=== PATIENT | male | born 1975 | race Caucasian/White ===

== ENCOUNTER 2018-04-30 05:04 | Inpatient (IN) | payer OTHER ==
[2018-04-30] MEDS ORDERED: GABAPENTIN 300 MG CAP PO ONE (05:47)
[2018-04-30] MEDS ORDERED: ACETAMINOPHEN 500 MG TAB PO ONE (05:47)
[2018-04-30] MEDS ORDERED: ceFAZolin 2 GM/DEXTROSE 100 ML IV ONE (05:47)
[2018-04-30] MEDS ORDERED: LR 1,000 ML IV ONE (05:48)
[2018-04-30] MEDS ORDERED: BACITRACIN 50,000 UNITS/10 ML SYR IRR ONE ×3 (06:49→11:03)
[2018-04-30] MEDS ORDERED: BUPIVACAINE 0.25% 30 ML SDV ONE (06:52)
[2018-04-30] MEDS ORDERED: EPINEPHrine 1 MG/ML INJ ONE (06:52)
[2018-04-30] MEDS ORDERED: THROMBIN (BOVINE) 5,000 UNIT VIAL TP ONE (06:52)
[2018-04-30] MEDS ORDERED: MIDAZOLAM 2 MG/2 ML VIAL IVP ONE (06:55)
--- NOTE | 2018-04-30 06:55 | PDANEPAE ---
ANE History of Present Illness L5-S1 TLIF ANE Past Medical History - Cardiovascular History Hx Hypertension: Yes Hx Arrhythmias: No Hx Chest Pain: No Hx Coronary Artery / Peripheral Vascular Disease: No Hx CHF / Valvular Disease: No Hx Palpitations: No - Pulmonary History Hx COPD: No Hx Asthma/Reactive Airway Disease: No Hx Recent Upper Respiratory Infection: No Hx Oxygen in Use at Home: No Hx Sleep Apnea: No Sleep Apnea Screening Result - Last Documented: Positive - Neurologic History Hx Cerebrovascular Accident: No Hx Seizures: No Hx Dementia: No - Endocrine History Hx Diabetes: Yes Hypothyroid: No Hyperthyroid: No Obesity: yes Endocrine History Comment: 2007 HAD DIABETIC STROKE WITH RESIDUAL VISUAL DISTURBANCE. 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 RT ARM NUMBNESS - Chronic Pain History Chronic Pain: Yes (TAILBONE AND MIDDLE OF BACK,RT ARM NUMBNESS) - Surgical History Prior Surgeries: CERVICAL DISKECTOMY 2011. GASTRIC BYPASS 07/2008. LT ING HERNIA. LT KNEE SCOPE X2 ANE Review of Systems Review of systems is: negative Review of Systems: - Exercise capacity METS (RN): 4 METS ANE Patient History - Allergies Allergies/Adverse Reactions: clindamycin Allergy (Verified 04/06/18 10:56) TONGUE SWELLING - Home Medications Home medications: home medication list seen and reviewed Home Medications: Advil TID 04/06/18 [Last Taken 04/23/18] Lisinopril DAILY16 04/06/18 [Last Taken 04/30/18 03:30] - NPO status NPO Since - Liquids (Date): 04/30/18 NPO Since - Liquids (Time): 03:30 NPO Since - Solids (Date): 04/29/18 NPO Since - Solids (Time): 21:30 - Anes Hx Anes Hx: no prior problems - Smoking Hx Smoking Status: Never smoked ANE Labs/Vital Signs - Vital Signs Blood Pressure: 144/100 Heart Rate: 59 Respiratory Rate: 12 O2 Sat (%): 96 Height: 170.18 cm Weight: 111.13 kg ANE Physical Exam - Airway Neck exam: FROM Mallampati Score: Class 1 Mouth exam: normal dental/mouth exam - Pulmonary Pulmonary: no respiratory distress - Cardiovascular Cardiovascular: regular rate and rhythym - ASA Status ASA Status: II ANE Anesthesia Plan Anesthesia Plan: general endotracheal anesthesia
--- NOTE | 2018-04-30 07:00 | PDHPUP ---
History & Physical Update H&P update statement: This history and physical update is based on an assessment of the patient which was completed after admission or registration (within 24 hours), but prior to the surgery/procedure. H&P update: H&P reviewed & patient examined, no change in patient's condition since H&P completed
[2018-04-30] MEDS ORDERED: REMIFENTANIL HCL 1 MG VIAL ONE (07:04)
[2018-04-30] MEDS ORDERED: ROCURONIUM 50 MG/5 ML VIAL ONE ×2 (07:05→08:29)
[2018-04-30] MEDS ORDERED: LIDOCAINE 2% 2 ML INJ ONE ×2 (07:05)
[2018-04-30] MEDS ORDERED: ONDANSETRON 4 MG/2 ML VIAL ONE (07:05)
[2018-04-30] MEDS ORDERED: fentaNYL 100 MCG/2 ML INJ ONE ×4 (07:05→12:54)
[2018-04-30] MEDS ORDERED: PROPOFOL/EMULSION 500 MG/50 ML BOTTLE IV ONE ×3 (07:05→10:26)
[2018-04-30] MEDS ORDERED: DEXAMETHASONE 4 MG/ML VIAL ONE (07:05)
[2018-04-30] MEDS ORDERED: CHLORHEXIDINE GLUC HIBICLENS 118 ML BTL TP ONE (07:10)
[2018-04-30] MEDS ORDERED: PROPOFOL 200 MG/20 ML VIAL ONE (07:12)
[2018-04-30] MEDS ORDERED: LACTULOSE 20 GM/30 ML UDCUP PO PRN (07:52)
[2018-04-30] MEDS ORDERED: MAGNESIUM HYDROXIDE 30 ML UDCUP PO PRN (07:52)
[2018-04-30] MEDS ORDERED: ONDANSETRON DISINTEGRATING 4 MG TAB PO PRN ×2 (07:52)
[2018-04-30] MEDS ORDERED: BISACODYL 10 MG SUPP PR PRN (07:52)
[2018-04-30] MEDS ORDERED: METOCLOPRAMIDE 10 MG/2 ML VIAL IVP PRN (07:52)
[2018-04-30] MEDS ORDERED: PROMETHAZINE HCL 25 MG/ML INJ IVP PRN ×3 (07:52→11:39)
[2018-04-30] MEDS ORDERED: POLYETHYLENE GLYCOL 3350 17 GM PKT PO PRN (07:52)
[2018-04-30] MEDS ORDERED: ONDANSETRON 4 MG/2 ML VIAL IVP PRN ×3 (07:52→11:39)
[2018-04-30] MEDS ORDERED: diphenhydrAMINE 25 MG CAP PO PRN ×2 (07:52)
[2018-04-30] MEDS ORDERED: ACETAMINOPHEN 325 MG TAB PO PRN (07:52)
[2018-04-30] MEDS ORDERED: ePHEDrine SULFATE 25 MG/5 ML SYR ONE ×2 (07:56→08:29)
[2018-04-30] MEDS ORDERED: NS 1,000 ML IV SCH (08:00)
[2018-04-30] MEDS ORDERED: HYDROmorphONE/DILAUDID 2 MG/ML INJ ONE (08:03)
--- NOTE | 2018-04-30 09:08 | POSTANESTH ---
Post Anesthetic Evaluation Cardiovascular Status: Normal, Stable Respiratory Status: Normal, Stable Level of Consciousness/Mental Status: Can Participate in Eval, Mildly Sleepy, Arousable Pain Control: Adequate, Prn Tx Ordered Nausea/Vomiting Control: Adequate, Prn Tx Ordered Complications Possibly Related to Anesthesia: None Noted
--- NOTE | 2018-04-30 09:21 | PDMN ---
Medical Necessity Medical necessity: MCG: S820 lumbar fusion INPT only 3 days: OP: L5-S1 TLIF [id number] APPROVED FOR INPT SURGERY
[2018-04-30] MEDS ORDERED: ceFAZolin 1 GM VIAL ONE (10:30)
[2018-04-30] MEDS ORDERED: DIAZEPAM 5 MG/ML 1 ML SYR IVP PRN (11:39)
[2018-04-30] MEDS ORDERED: ACETAMINOPHEN 500 MG TAB PO PRN (11:39)
[2018-04-30] MEDS ORDERED: ALBUTEROL 3 ML DEYVIAL IH PRN (11:39)
[2018-04-30] MEDS ORDERED: HYDROmorphONE/DILAUDID 2 MG/ML INJ IVP PRN (11:39)
[2018-04-30] MEDS ORDERED: LABETALOL HCL 5 MG/ML 20 ML MDV IVP PRN (11:39)
[2018-04-30] MEDS ORDERED: oxyCODONE IR 5 MG TAB PO PRN (11:39)
[2018-04-30] MEDS ORDERED: LR 500 ML IV PRN (11:39)
[2018-04-30] MEDS ORDERED: HYDROCODONE/APAP 5/325 TAB PO PRN (11:39)
[2018-04-30] MEDS ORDERED: NALOXONE HCL 0.4 MG/ML INJ IVP PRN (11:39)
[2018-04-30] MEDS ORDERED: fentaNYL 100 MCG/2 ML INJ IVP PRN (11:39)
[2018-04-30] MEDS ORDERED: DIAZEPAM 5 MG/ML 1 ML SYR ONE (13:05)
--- NOTE | 2018-04-30 13:40 | GOP ---
DATE OF OPERATION: 04/30/2018 SURGEON: Casey Aguilar MD NEUROSURGEON: Casey Aguilar MD. CLOTH LAMINATING SUPERVISOR: Lisa Santiago, nurse practitioner. PREOPERATIVE DIAGNOSIS: Lumbar spondylolysis L5, lumbar spondylolisthesis L5-S1, bilateral lumbosacr al radiculopathy, bilateral hip pain, axial low back pain. POSTOPERATIVE DIAGNOSIS: Lumbar spondylolysis L5, lumbar spondylolisthesis L5-S1, bilateral lumbosac ral radiculopathy, bilateral hip pain, axial low back pain. PROCEDURE PERFORMED: Posterior lateral and intervertebral arthrodesis L5-S1 with a Fiore decompressio n bilaterally (77266), placement of biomechanical intervertebral device L5-S1 (12013), posterior nons egmental instrumentation across a single interspace L5-S1, spinal stereotaxy, microscope, same incisi on bone graft harvest. FINDINGS: Consistent with diagnosis. SPECIMENS: None. ESTIMATED BLOOD LOSS: 100 cc. INDICATIONS: The patient is a young gentleman with a long history of axial low back pain, bilateral radiating hip pain, that had become intolerable. MRI demonstrated a spondylolysis of L5 and signific ant spondylolisthesis right at the grade 1-2 junction. There was a severe foraminal stenosis of the exiting L5 nerve roots, and I suggested a bilateral decompression and fusion. The risks of adjacent segment disease, axial low back pain, continued symptoms, nerve injury, spinal fluid leak, pseudoarth rosis were discussed. He knew that in time he may need to have additional surgery. He knew that he may have significant perioperative discomfort. He understood these risks. He did want to proceed. DESCRIPTION OF PROCEDURE: Patient was taken to the operating room, placed in a supine position. Gen eral anesthesia was begun. He was flipped prone onto the Kobe table. Care was taken to pad all p oints of contact. His back was sterilely prepped and draped in the usual fashion. A localizing x-ra y was taken. We made a midline incision about 6 cm in length. The subcutaneous tissue was dissected using Bovie cautery down to the fascia, and a subperiosteal dissection was made down the inferior la jose of L4 and the lamina of L5, and the lamina of S1 was exposed. The L5 lamina was floating and hy permobile. The L4 lamina was subluxed more ventrally. We shot a localizing x-ray. We denuded the b ilateral facet joints at L5-S1 and identified the transverse process of L5 and the sacral ala. We at tached the Stealth reference frame to the L4 spinous process and removed the L5 spinous process for a utologous grafting purposes. We performed an O-arm spin and using frame still stereotactic, placed p edicle screws bilaterally at L5 and the sacrum. The sacral screws were bicortical. All the screws s timulated at acceptable levels on lateral imaging. However, after placement of the pedicle screws, t he left L5 screw appeared to violate the plane of the L4-5 disk on 3D imaging. There was no clear ev idence of disk violation as it was just lateral to the disk itself and did not violate the bony endpl ate of L5. However, given the lateral appearance on x-ray, I elected to remove that screw and replac e it under Stealth guidance. Followup imaging demonstrated a perfectly placed screw. There was exce llent bony purchase of all 4 screws. Placed 40 mm rods down over the screws and then distracted at L5-S1 and got significant reduction of the spondylolisthesis by over 50%. This opened the neural foramen nicely. The L5 lamina became even more mobile at this point. We harvested the lamina for autologous grafting purposes and then carefu lly decompressed each of the exiting L5 roots underneath the isthmus coming off the L5 pedicle. We d ecorticated the L5 pedicle and the superior taken process of the sacrum to create posterolateral arth rodesis. We decompressed both the exiting L5 nerve roots all the way out in the neural foramen. Fro m a right-sided approach at L5-S1, we removed the L5-S1 disk and roughened the subchondral bone to cr eate arthrodesis at L5-S1. There was significant irritability of the S1 nerve root as we were doing this, and it was really unclear why that was the case. We had a nerve retractor on it and there was virtually no retraction needed. We had excellent view of the disk space, but even irrigation alone w ould cause the nerve to jump. There were no injury potentials, just individual bursts, and we simply gave the nerve deep perspective. As we were doing this, we packed bone autograft and BMP into the di sk space followed by 7 x 23 mm device. It was expanded under fluoroscopic guidance. We then decorti cated all remaining posterolateral bone and placed BMP and bone autograft posterolaterally bilaterall y. We placed a subfascial drain, but we pulled it out as we were closing the tissue and elected to n ot replace it because there had been virtually no bleeding the entire surgery. We closed the incisio n in multiple layers using Vicryl sutures. A running PDS was placed in the skin itself. The patient was reversed from anesthesia, extubated, and transferred to recovery room in stable condition. Ther e were no complications. COMPLICATIONS: None. INSTRUMENTATION USED: [employer] 5.5 mm system. We used an extra small BMP and a 7 x 23 mm El evate cage all manufactured by the [employer]. COMPLICATIONS: None. /[id number]/MODL
[2018-04-30] MEDS ORDERED: oxyCODONE IR 5 MG TAB ONE (13:43)
--- NOTE | 2018-04-30 13:45 | POSTOPPROG ---
Post Op Note Date of Operation: 04/30/18 Surgeon: Lori Aguilar Supervisor Pipe Joints: Kevin Santiago NP Anesthesiologist: Kerri Anesthesia: GET(General Endotracheal) Pre-op Diagnosis: Spondylolisthesis, lumbar stenosis Procedure: L5-S1 Inf/Abcess present in the surg proc area at time of surgery?: No Depth: Deep Incisional (Fascial) EBL: 100-500 Total fluids administered: see anesthesia Complications: none Date of Surgery: 04/30/18 Post Op Day: 0 Assessment/Plan: Assessment: 42 yr old s/p L5-S1 TLIF for spondylolisthesis for lower back pain worse on the right Plan -Product Blending Supervisor to fit with brace, ok to get oob without brace until it arrives -PT/OT eval -No RUTH -Pain management -Post op xrays in am -Please call neurosurgery with questions/concerns Subjective: Waking up in PACU Objective: Waking up in PACU CASTAÑEDA x4 5/5 BLE Sensation intact to light touch BLE Dressing CDI Appropriate Neuro Check Frequency Ordered: Yes
[2018-04-30] MEDS: ceFAZolin 2 GM/DEXTROSE 100 ML IV SCH ×2 (16:10→23:01)
[2018-04-30] MEDS: GABAPENTIN 300 MG CAP PO SCH ×2 (16:10→23:01)
[2018-04-30] MEDS: METHOCARBAMOL 750 MG TAB PO PRN ×2 (16:16→23:01)
[2018-04-30] MEDS: SENNOSIDES/DOCUSATE SODIUM TAB PO SCH ×2 (16:44→20:03)
[2018-04-30] MEDS: LISINOPRIL 40 MG TAB PO SCH (16:44)
[2018-04-30] MEDS: FAMOTIDINE 20 MG TAB PO SCH ×2 (16:44→20:03)
[2018-04-30] MEDS: oxyCODONE IR 5 MG TAB PO PRN ×2 (20:03→23:01)
[2018-05-01] MEDS: oxyCODONE IR 5 MG TAB PO PRN ×4 (01:26→20:20)
[2018-05-01] MEDS: METHOCARBAMOL 750 MG TAB PO PRN ×3 (04:55→18:25)
[2018-05-01] MEDS: GABAPENTIN 300 MG CAP PO SCH ×3 (04:55→22:37)
[2018-05-01 05:09] LABS: PLATELET COUNT 153 10^3/uL (150-400)
[2018-05-01] MEDS: LISINOPRIL 40 MG TAB PO SCH (08:10)
[2018-05-01] MEDS: FAMOTIDINE 20 MG TAB PO SCH ×2 (08:13→20:20)
[2018-05-01] MEDS: SENNOSIDES/DOCUSATE SODIUM TAB PO SCH ×2 (08:14→20:20)
--- NOTE | 2018-05-01 08:26 | NEUSURGPN ---
Date of Surgery: 04/30/18 Post Op Day: 1 Assessment/Plan: Assessment: 42 yr old s/p L5-S1 TLIF for spondylolisthesis for lower back pain worse on the right POD#1 Plan -Psychiatric Nursing Assistant to fit with brace, ok to get oob without brace until it arrives -PT/OT eval -Patient with bilateral ulnar numbness-will continue to follow. 5/5 BUE -No RUTH -Pain management -Post op xrays today -Please call neurosurgery with questions/concerns Subjective: low back pain, bilateral lateral hand numbness Objective: AxO x4 CASTAÑEDA x4 5/5 BUE, decreased sensation bilateral lateral hand forearm 5/5 BLE aside from right TA/EHL 5- Dressing/incision CDI Neuro Check Frequency: per routine Urinary Catheter in Place: No - Physician Discussed Patient with .: Jeff Patient Seen by : Jeff Neurosurgery Physical Exam - Vitals, I&O, Labs I and O 04/30/18 05/01/18 05/02/18 05:59 05:59 05:59 Intake Total 3610 Output Total 1300 Balance 2310 Weight 111.13 kg Intake: Oral (ml) 1500 IV Intake (ml) 1250 IV Infused (ml) 860 Ns 1,000 ml @ 75 mls/hr 750 IV CONT MER[facility] Rx#: [id number] ceFAZolin 2 GM/DEXTROSE 110 100 ml @ 200 mls/hr IV Q8H [facility]ITH Rx#:[id number] Output: Urine (ml) 1150 Toilet 1150 Estimated Blood Loss (ml) 150 Other: Number of Voids Toilet 1 Vital Signs Temp Pulse Resp BP Pulse Ox 37.0 C 64 16 121/90 H 98 05/01/18 04:49 05/01/18 08:19 05/01/18 08:19 05/01/18 08:19 05/01/18 08:19 Laboratory Results 05/01/18 04:40 05/01/18 04:40 ICD10 Worksheet Patient Problems: Problems Problem Status Onset Spondylolisthesis Acute - ICD10 Problem Qualifiers (1) Spondylolisthesis
[2018-05-01] MEDS: ACETAMINOPHEN 500 MG TAB PO SCH ×3 (09:39→22:37)
--- NOTE | 2018-05-01 11:54 | ASMTCMCOM ---
CM Note CM Note Notes: Patient is POD #1 L5-S1 TLIF and doing well. He lives with his and is normally independent. Per RN, will not likely have any d/c needs, but PT/OT evals are pending. Case Management available for any needs. Date Signed: 05/01/2018 11:54 AM Electronically Signed By:Lindsay Guzman RN
[2018-05-02] MEDS: METHOCARBAMOL 750 MG TAB PO PRN (05:55)
[2018-05-02] MEDS: oxyCODONE IR 5 MG TAB PO PRN (05:55)
[2018-05-02] MEDS: GABAPENTIN 300 MG CAP PO SCH (05:55)
[2018-05-02 07:40] VITALS: BP 127/79
--- NOTE | 2018-05-02 07:45 | NEUSURGPN ---
Date of Surgery: 04/30/18 Post Op Day: 2 Assessment/Plan: Assessment: 42 yr old s/p L5-S1 TLIF for spondylolisthesis for lower back pain worse on the right POD#2 Plan -Patient fit with brace, wear when out of bed -PT/OT -Patient with bilateral ulnar numbness- post op, reports 95% improvement today -Pain management, pain well controlled with oral medications -Post op xrays show stable hardware placement -Patient seen by Dr Aguilar as well -Ok to discharge home today, will follow up in 2 weeks for post op visit -Please call neurosurgery with questions/concerns Subjective: back pain improved, continued bilateral hip pain Objective: AxO x3 CASTAÑEDA x4 5/5 BLE Sensation intact to light touch BLE Incision/dressing CDI (old/dried drainage on dressing) Neuro Check Frequency: per routine Urinary Catheter in Place: No - Physician Discussed Patient with : Jeff Patient Seen by : Jeff Neurosurgery Physical Exam - Vitals, I&O, Labs I and O 05/01/18 05/02/18 05/03/18 05:59 05:59 05:59 Intake Total 3610 1700 Output Total 1300 700 Balance 2310 1000 Weight 111.13 kg Intake: Oral (ml) 1500 1700 IV Intake (ml) 1250 IV Infused (ml) 860 Ns 1,000 ml @ 75 mls/hr 750 IV CONT MEREDITH Rx#: [id number] ceFAZolin 2 GM/DEXTROSE 110 100 ml @ 200 mls/hr IV Q8H [facility]ITH Rx#:[id number] Output: Urine (ml) 1150 700 Toilet 1150 700 Estimated Blood Loss (ml) 150 Other: Number of Voids Toilet 1 1 Vital Signs Temp Pulse Resp BP Pulse Ox 37.1 C 68 16 127/79 H 93 05/02/18 07:39 05/02/18 07:39 05/02/18 07:39 05/02/18 07:39 05/02/18 07:39 Laboratory Results 05/01/18 04:40 05/01/18 04:40 ICD10 Worksheet Patient Problems: Problems Problem Status Onset Spondylolisthesis Acute - ICD10 Problem Qualifiers (1) Spondylolisthesis
[2018-05-02] MEDS: ACETAMINOPHEN 500 MG TAB PO SCH (08:54)
[2018-05-02] MEDS: SENNOSIDES/DOCUSATE SODIUM TAB PO SCH (08:56)
[2018-05-02] MEDS: LISINOPRIL 40 MG TAB PO SCH (08:56)
[2018-05-02] MEDS: FAMOTIDINE 20 MG TAB PO SCH (08:57)
[2018-05-03] MEDS ORDERED: ENOXAPARIN 40 MG/0.4 ML SYR SC SCH (09:00)
== END 2018-05-02 10:28 | disposition home or self-care (01) | DRG 455 ==
LOC: F3N 05:04
PROVIDERS: ADMIT Neurological Surgery; ATTEND Neurological Surgery
PROC: 0SB40ZZ Excision of Lumbosacral Disc, Open Approach (ICD-10-PCS; principal; 2018-04-30 07:15)
PROC: 0SG30AJ Fusion of Lumbosacral Joint with Interbody Fusion Device, Posterior Approach, Anterior Column, Open Approach (ICD-10-PCS; principal; 2018-04-30 07:15)
PROC: 4A1004G Monitoring of Central Nervous Electrical Activity, Intraoperative, Open Approach (ICD-10-PCS; principal; 2018-04-30 07:15)
PROC: 8E0WXBF Computer Assisted Procedure of Trunk Region, With Fluoroscopy (ICD-10-PCS; principal; 2018-04-30 07:15)
PROC: 3E0U0GB Introduction of Recombinant Bone Morphogenetic Protein into Joints, Open Approach (ICD-10-PCS; principal; 2018-04-30 07:15)
PROC: 0SG3071 Fusion of Lumbosacral Joint with Autologous Tissue Substitute, Posterior Approach, Posterior Column, Open Approach (ICD-10-PCS; principal; 2018-04-30 07:15)
PROC: 01NB0ZZ Release Lumbar Nerve, Open Approach (ICD-10-PCS; principal; 2018-04-30 07:15)
DX: M43.17 Spondylolisthesis, lumbosacral region (principal); M48.07 Spinal stenosis, lumbosacral region; M54.17 Radiculopathy, lumbosacral region; M48.061 Spinal stenosis, lumbar region without neurogenic claudication; I10 Essential (primary) hypertension; Z98.84 Bariatric surgery status
CPT/HCPCS: 97161-GP; 97165-GO; 97535-GO; C1713; J0171; J0690; J1100; J1170; J2250; J2405; J2704; J3010; J3360